=== PATIENT | female | born 1985 | race Caucasian/White ===

== ENCOUNTER 2022-04-03 01:33 | Emergency (ER) | payer OTHER ==
[~2022-04-03] VITALS: Ht 160 cm; Wt 43.1 kg
== END 2022-04-03 02:35 | disposition home or self-care (01) ==
LOC: ER 01:33
DX: S81.852A Open bite, left lower leg, initial encounter (principal); Z88.8 Allergy status to other drugs, medicaments and biological substances; W54.0XXA Bitten by dog, initial encounter
CPT/HCPCS: A9270